=== PATIENT | female | born 1945 | race Caucasian/White ===

== ENCOUNTER 2017-01-01 11:48 | Day surgery (SDC) | payer OTHER ==
[~2017-01-01 11:48] MED LIST: DIPRIVAN VIAL ONE; VERSED ONE
[2017-01-01] MEDS ORDERED: NS 500 ML IV 500 ML IV ONE (12:11)
[2017-01-01] MEDS ORDERED: TETRACAINE 0.5% OPHTH 1 DOSE AFFEYE ONE ×4 (12:15→14:48)
[2017-01-01] MEDS ORDERED: VIGAMOX 0.5% OPHTH 1 DOSE AFFEYE ONE ×5 (12:20→15:00)
[2017-01-01] MEDS ORDERED: PROLENSA OPHTH 1 DOSE AFFEYE ONE (12:32)
[2017-01-01] MEDS ORDERED: ALPHAGAN-P OPHTH 1 DOSE AFFEYE ONE (12:33)
[2017-01-01] MEDS ORDERED: AK-DILATE 2.5% OPHTH 1 DOSE OP ONE ×3 (12:34→12:36)
[2017-01-01] MEDS ORDERED: MYDRIACIL OPHTH 1 DOSE AFFEYE ONE ×3 (12:34→12:36)
[2017-01-01] MEDS ORDERED: CYCLOGYL 1% OPHTH 1 DOSE OP ONE ×3 (12:34→12:36)
[2017-01-01] MEDS ORDERED: BETADINE OPHTH SOLN 5% EACHEYE ONE (14:31)
[2017-01-01] MEDS ORDERED: BSS OPHTH (PLAIN) 500 ML with VANCOMYCIN HCL 500 MG VIAL 25 MG, ADRENALINE CHL INJ 1 MG IR ONE ×6 (14:36)
[2017-01-01] MEDS ORDERED: DUOVISC IO ONE ×2 (14:36→14:48)
[2017-01-01] MEDS ORDERED: ADRENALINE CHL INJ IJ ONE ×2 (14:36→14:48)
[2017-01-01] MEDS ORDERED: XYLOCAINE-MPF 1% IJ ONE ×2 (14:36→14:48)
[2017-01-01 15:30] VITALS: BP 155/72
== END 2017-01-01 15:25 | disposition home or self-care (01) ==
LOC: SURG1 11:48
PROVIDERS: ATTEND Ophthalmology
PROC: 08RK3JZ Replacement of Left Lens with Synthetic Substitute, Percutaneous Approach (ICD-10-PCS; principal; 2017-01-01 13:30)
PROC: 08DK3ZZ Extraction of Left Lens, Percutaneous Approach (ICD-10-PCS; principal; 2017-01-01 13:30)
DX: H25.12 Age-related nuclear cataract, left eye (principal); H52.222 Regular astigmatism, left eye
CPT/HCPCS: A4217; J0170; J2250; J3370; J3490

== ENCOUNTER 2017-02-12 10:42 | Day surgery (SDC) | payer OTHER ==
[~2017-02-12 10:42] MED LIST changes: -DIPRIVAN VIAL ONE; +PROLENSA OPHTH 1 DOSE AFFEYE ONE; +TETRACAINE 0.5% OPHTH 1 DOSE AFFEYE ONE; -VERSED ONE; +VIGAMOX 0.5% OPHTH 1 DOSE AFFEYE ONE
[2017-02-12] MEDS ORDERED: ALPHAGAN-P OPHTH 1 DOSE AFFEYE ONE (10:43)
[2017-02-12] MEDS ORDERED: VISINE-A OPHTH 1 DOSE AFFEYE ONE (10:44)
[2017-02-12] MEDS ORDERED: MYDRIACIL OPHTH 1 DOSE AFFEYE ONE ×3 (10:45→10:47)
[2017-02-12] MEDS ORDERED: AK-DILATE 2.5% OPHTH 1 DOSE OP ONE ×3 (10:45→10:47)
[2017-02-12] MEDS ORDERED: CYCLOGYL 1% OPHTH 1 DOSE OP ONE ×3 (10:45→10:47)
[2017-02-12] MEDS ORDERED: NS 500 ML IV 500 ML IV ONE (11:02)
[2017-02-12] MEDS ORDERED: DIPRIVAN VIAL ONE (13:43)
[2017-02-12] MEDS ORDERED: BETADINE OPHTH SOLN 5% EACHEYE ONE (14:20)
[2017-02-12] MEDS ORDERED: TETRACAINE 0.5% OPHTH 1 DOSE AFFEYE ONE ×4 (14:20→14:46)
[2017-02-12] MEDS ORDERED: ADRENALINE CHL INJ IJ ONE ×2 (14:25→14:46)
[2017-02-12] MEDS ORDERED: DUOVISC IO ONE ×2 (14:25→14:46)
[2017-02-12] MEDS ORDERED: VIGAMOX 0.5% OPHTH 1 DOSE AFFEYE ONE ×2 (14:25→14:58)
[2017-02-12] MEDS ORDERED: XYLOCAINE-MPF 1% IJ ONE ×2 (14:25→14:46)
[2017-02-12] MEDS ORDERED: BSS OPHTH (PLAIN) 500 ML with VANCOMYCIN HCL 500 MG VIAL 25 MG, ADRENALINE CHL INJ 1 MG IR ONE ×3 (14:26)
[2017-02-12 17:06] VITALS: BP 150/70
== END 2017-02-12 15:25 | disposition home or self-care (01) ==
LOC: SURG1 10:42
PROVIDERS: ATTEND Ophthalmology
PROC: 08DK3ZZ Extraction of Left Lens, Percutaneous Approach (ICD-10-PCS; principal; 2017-02-12 02:30)
PROC: 08RK3JZ Replacement of Left Lens with Synthetic Substitute, Percutaneous Approach (ICD-10-PCS; principal; 2017-02-12 02:30)
DX: H25.12 Age-related nuclear cataract, left eye (principal); H52.222 Regular astigmatism, left eye
CPT/HCPCS: A4217; J0170; J3370; J3490